=== PATIENT | female | born 1975 | race Caucasian/White ===

== ENCOUNTER 2019-03-07 16:21 | Emergency (ER) | payer OTHER, MEDICAID ==
[~2019-03-07] VITALS: Ht 167.6 cm; Wt 77.1 kg
[~2019-03-07 16:21] MED LIST: ALPR0.5T PO; ASPI-1155 PO; ESOM5SUS PO; GEO40 PO; HYDR-4100 PO; IBUP100T8 PO; LAMO200T2 PO; RANI150T8 PO
[2019-03-07 16:46] VITALS: BP_SYST 114
[2019-03-07] MEDS ORDERED: ALPRAZolam 0.25 MG TABLET PO ONE (17:00)
[2019-03-07] MEDS ORDERED: KETOROLAC TROMETHAMINE 60 MG/2 ML VIAL IM ONE (17:00)
[2019-03-07 17:40] VITALS: BP_SYST 123
== END 2019-03-07 17:40 | disposition home or self-care (01) ==
LOC: SED 16:21
DX: F41.9 Anxiety disorder, unspecified (principal); M54.2 Cervicalgia; G89.29 Other chronic pain; R03.0 Elevated blood-pressure reading, without diagnosis of hypertension; F31.9 Bipolar disorder, unspecified; Z86.718 Personal history of other venous thrombosis and embolism; Z88.2 Allergy status to sulfonamides; Z79.82 Long term (current) use of aspirin; Z79.899 Other long term (current) drug therapy
CPT/HCPCS: 81025; 96372; 99284; J1885

== ENCOUNTER 2019-07-09 16:12 | Emergency (ER) | payer OTHER, MEDICAID ==
[~2019-07-09] VITALS: Ht 165.1 cm; Wt 67.1 kg
--- NOTE | 2019-07-09 16:50 | NUR ---
Attempted to call patient for triage, not in waiting room. Will continue to follow up.
--- NOTE | 2019-07-09 17:00 | NUR ---
Attempted to call patient for triage, patient not in waiting room, will continue to follow up.
--- NOTE | 2019-07-09 17:00 | NUR ---
Patient to ER bed 05 to gown for evaluation. Side rails up.
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
[2019-07-09 17:11] VITALS: BP_SYST 119
[2019-07-09] MEDS ORDERED: NACL 0.9% 1,000 ML IV ONE (18:48)
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
--- NOTE | 2019-07-09 19:00 | NUR ---
ER at bedside examining patient.
--- NOTE | 2019-07-09 19:00 | NUR ---
patient refused EKG
--- NOTE | 2019-07-09 19:10 | NUR ---
patient refused blood draw
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
--- NOTE | 2019-07-09 19:28 | NUR ---
patient recieved xray.
--- NOTE | 2019-07-09 19:28 | NUR ---
patient wants talking the phone and listening to music and does not follow directions well.
[2019-07-09 20:40] LABS: BASOPHILS % (AUTO) 0.2 % (0.0-2.0); EOSINOPHILS # (AUTO) 0.4 K/uL (0.0-0.4); HEMOGLOBIN 14.2 g/dL (12.0-16.0); LYMPHOCYTES # (AUTO) 1.7 K/uL (1.0-5.5); LYMPHOCYTES % (AUTO) 22.7 % (20.5-51.5); MEAN CORPUSCULAR HEMOGLOBIN 33 pg (27-31); MEAN CORPUSCULAR HGB CONC 34 % (32-36); MEAN CORPUSCULAR VOLUME 96 fL (79.0-98.0); MONOCYTES # (AUTO) 0.2 K/uL (0.0-1.0); MONOCYTES % (AUTO) 3.3 % (1.7-9.3); NEUTROPHILS # (AUTO) 5.2 K/uL (1.8-7.7); NEUTROPHILS % (AUTO) 68.8 % (40.0-70.0); PLATELET COUNT (AUTO) 312 K/uL (130-430); RED BLOOD CELL COUNT(AUTO) 4.36 MIL/uL (4.2-6.2); RED CELL DISTRIBUTION WIDTH 12.6 % (9.0-15.0); WHITE BLOOD COUNT (AUTO) 7.5 K/uL (4.8-10.8)
[2019-07-09 20:41] LABS: ANION GAP 8 (5-15); CALCIUM 9.8 mg/dL (8.4-11.0); CHLORIDE 101 mmol/L (98-107); CREATININE 0.83 mg/dL (0.55-1.30); GLUCOSE 123 mg/dL (70-99); POTASSIUM 3.7 mmol/L (3.5-5.1); SODIUM SERUM 138 mmol/L (136-145); UREA NITROGEN, BLOOD 12 mg/dL (8-21)
[2019-07-09 20:42] LABS: GFR AFRICAN AMERICAN 96 mL/min (>90)
[2019-07-09 20:43] LABS: BILIRUBIN,URINE NEGATIVE (NEGATIVE); BLOOD, URINE NEGATIVE (NEGATIVE); CLARITY/URINE CLEAR (CLEAR); COLOR,URINE YELLOW (YELLOW); GLUCOSE,URINE NEGATIVE (NEGATIVE); KETONES,URINE NEGATIVE (NEGATIVE); LEUKOCYTE ESTERASE ,URINE NEGATIVE (NEGATIVE); NITRITE, URINE NEGATIVE (NEGATIVE); PROTEIN URINE NEGATIVE (NEGATIVE); UROBILINOGEN,URINE 0.2 (0.2-1.0)
[2019-07-09 20:47] LABS: ALANINE AMINOTRANSFERASE 17 U/L (12-78); ALBUMIN 3.7 g/dL (3.4-4.8); AMYLASE 35 U/L (0-100); ASPARTATE AMINOTRANSFERASE 17 U/L (10-37); LIPASE 67 U/L (73-393); TOTAL BILIRUBIN 0.3 mg/dL (0.0-1.0)
[2019-07-09 20:52] LABS: INR 0.9 (0.8-1.2); PROTHROMBIN TIME 9.1 SECS (9.5-12.5)
[2019-07-09 20:53] LABS: ALCOHOL, BLOOD < 3 mg/dL (<10)
--- NOTE | 2019-07-09 21:00 | NUR ---
patient upset about her stay. family called.
[2019-07-09 21:01] LABS: BARBITURATE, URINE NEGATIVE (NEG <=200); BENZODIAZEPINE, URINE POSITIVE (NEG <=150); CANNABINOID, URINE NEGATIVE (NEG <=50); COCAINE, URINE NEGATIVE (NEG <=150); METHAMPHETAMINES SCREEN,URINE NEGATIVE (NEG <=500); OPIATE, URINE POSITIVE (NEG <=100); PHENCYCLIDINE SCREEN,URINE NEGATIVE (NEG <=25); UR TRICYCLIC ANTIDEPRESSANTS NEGATIVE (NEG <=300); URINE AMPHETAMINE NEGATIVE (NEG <=500); URINE METHADONE NEGATIVE (NEG <=200); URINE OXYCODONE SCREEN NEGATIVE (NEG <=100); URINE PROPOXYPHENE SCREEN NEGATIVE (NEG <=300)
--- NOTE | 2019-07-09 21:15 | NUR ---
ER at bedside examining patient.
--- NOTE | 2019-07-09 21:41 | NUR ---
patient resting eating a salad. waiting for PD
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
--- NOTE | 2019-07-09 22:23 | NUR ---
[facility] in room
--- NOTE | 2019-07-09 22:55 | NUR ---
[facility] office [address] [place] [address] Officer Kalyan responded Incedent number [id number]
--- NOTE | 2019-07-09 23:14 | NUR ---
patient request food while eating a salad
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
--- NOTE | 2019-07-09 23:31 | NUR ---
ER at bedside examining patient.
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
--- NOTE | 2019-07-10 01:00 | NUR ---
patient is refusing VS
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
--- NOTE | 2019-07-10 01:18 | NUR ---
patient walking around the ER holding her salad bowl. patient asked to go back to room.
--- NOTE | 2019-07-10 02:04 | NUR ---
Patient stated "no one does anything in here."
[2019-07-10 02:20] VITALS: BP_SYST 110
--- NOTE | 2019-07-10 02:20 | NUR ---
Patient given written and verbal discharge instructions and verbalizes understanding. ER MD discussed with patient the results and treatment provided. Patient in stable condition. ID arm band removed. IV catheter removed intact and dressing applied, no active bleeding. Rx of zero given. Patient educated on pain management and to follow up with PMD. Pain Scale 0/10. Opportunity for questions provided and answered. Medication side effect fact sheet provided.
== END 2019-07-10 02:20 | disposition home or self-care (01) ==
LOC: SED 16:12
DX: T74.21XA Adult sexual abuse, confirmed, initial encounter (principal); M79.604 Pain in right leg; F31.9 Bipolar disorder, unspecified; F41.9 Anxiety disorder, unspecified; Z88.2 Allergy status to sulfonamides; Z79.82 Long term (current) use of aspirin; Z79.899 Other long term (current) drug therapy
CPT/HCPCS: 36415; 71045; 80053; 80307; 81003; 82150-TC; 82550-TC; 83605; 83690-TC; 83880; 84484; 85025; 85610-TC; 85730-TC; 87040-TC; 93971; 99284; G0482